=== PATIENT | female | born 1995 | race Caucasian/White ===

== ENCOUNTER 2017-12-28 15:20 | Outpatient (REF) | payer MEDICAID, SELFPAY ==
[2018-01-01 14:06] LABS: Chlamydia Result Negative; GC Result Negative; Specimen Description URINE
== END 2017-12-28 15:21 ==
LOC: LBN 15:20
PROVIDERS: PCP Nurse Practitioner Family; Visit Provider Nurse Practitioner Women's Health
DX: Z11.3 Encounter for screening for infections with a predominantly sexual mode of transmission (principal)
CPT/HCPCS: 87491; 87591

== ENCOUNTER 2018-04-29 00:20 | Outpatient (CLI) | payer MEDICAID, SELFPAY ==
[2018-04-29 11:24] LABS: Anion Gap 11.2 mmol/L (3-11); CO2 27.8 mmol/L (21.0-32.0); CREATININE 0.79 mg/dL (0.55-1.02); Calcium 10.6 mg/dL (8.5-10.1); Chloride 103 mmol/L (98-107); Glucose 88 mg/dL (70-100); Potassium 3.7 mmol/L (3.5-5.1); Sodium 142 mmol/L (136-145)
[2018-04-29 11:43] LABS: BUN 4 mg/dL (7-18)
== END 2018-04-29 00:40 ==
PROVIDERS: PCP Nurse Practitioner Family; Visit Provider Family Medicine
DX: K63.2 Fistula of intestine (principal)
CPT/HCPCS: 36415; 80048

== ENCOUNTER 2018-11-22 07:45 | Observation (INO) | payer MEDICAID, SELFPAY ==
[2018-11-22] VITALS (13 sets, daily range): BP systolic 94–134; BP diastolic 45–90; PULSE 70–113; RESP 12–18; TEMP 36.5–36.8; O2SAT 97–100
[2018-11-22 08:05] LABS: Bilirubin Negative (Negative); Blood Moderate (Negative); Clarity Clear (Clear); Glucose Negative (Negative); Ketones Negative (Negative); Leukocyte Esterase Moderate (Negative); Nitrite Negative (Negative); Urobilinogen 0.2 EU/dL (Up TO 0.2)
--- NOTE | 2018-11-22 08:06 | W.ED.GENAD ---
Discharge Plan Disposition Patient Disposition: [facility] INPATIENT Condition: Stable Discharge Details Chief Complaint: Abd Prob Clinical Impression: Ovarian mass, Right sided abdominal pain, Pyelonephritis Admit Date/Time: 11/22/18 10:56 Admit Provider: Pillo Crockett Attending Provider: Pillo Crockett Primary Care Provider: Piedad Langston ED Provider: Ramírez Bennett Discharge Data Discharge Date/Time-TO BE ENTERED AT DEPARTURE: 11/22/18 11:19 Medical Decision Making This is a pleasant 23-year-old female with no significant past medical history who presents today for evaluation of abdominal pain for the last day and a half. Is slightly worsened with food yesterday. No meals since last night. She has had some associated green diarrhea but denies any foreign travel or recent antibiotic use. Pain has no radiation to the chest or back. She denies any vaginal discharge or history of STDs. Exam demonstrates reproducible right mid and lower abdominal tenderness. Differential includes appendicitis, less likely gallbladder pathology. She could have mild atypical right-sided colitis secondary to her diarrhea as well. Due to the location of in nature of her symptoms we will get a CT scan for further evaluations, rehydrate, treat her pain, perform laboratory work-up and reassess. 8:[address] scan results have returned and show a notable left-sided suspected ovarian mass, no significant abnormality in the kidneys, a normal-appearing appendix, and notable stool in the right colon. I went and reassessed the patient and her pain is still notably and clearly on the right side of her abdomen. No significant left-sided tenderness. There is certainly a midline component, but this radiates to the right. Again on reassessment she continues to deny deny any dysuria or increased urinary frequency. She does note though that over the last 2 years that if she does not take care of herself does not drink a lot, she gets notable burning with urination. Differential is certainly altered with these unexpected findings, we will get an ultrasound to evaluate further for the ovarian component, as well as rule out torsion. Signs and symptoms appear inconsistent with torsion clinically though. Additionally we will give Rocephin for her urinary tract infection. Laboratory work-up does demonstrate no white count, no left shift, normal renal function, and a urinalysis concerning for pyelonephritis. 10:30 AM Ultrasound was performed, blood flow was noted in the ovary but it was slightly decreased. However on reassessment the patient's pain has nearly completely resolved and she is feeling much better. Because of the blood flow components, notable size of the mass, and atypical symptoms we did consult OB, and discussed the case with Dr. Crockett. He has come to bedside and personally evaluated the patient, he too feels that it is an atypical presentation as her tenderness is notably resolved. However because of the size of the mass, and the other historical components he would like to do an ex lap for further evaluation. At this time he would like the patient admitted for observation and surgical evaluation. I have extensively reviewed the treatment plan with the patient. I have addressed all patient concerns at this time. I have also discussed the plan with the admitting physician and they agree with the current assessment and plan and have agreed to assume responsibility for the patient. All parties demonstrate verbal understanding and agreement with our assessment and plan at this time. Images obtained through the lung bases are unremarkable. Liver, spleen and pancreas appear normal. Gallbladder and bile ducts are unremarkable. Adrenals and kidneys appear normal. Abdominal aorta is a normal diameter. No major vascular abnormality seen. No abdominal wall hernia seen. No abdominal or pelvic adenopathy seen. Appendix appears normal. No evidence of diverticulitis or bowel obstruction. There is a rounded fairly well circumscribed mass of the pelvis which measures about 9 x 7 cm in diameter on transaxial imaging. This has irregular soft tissue attenuation rim and fluid attenuation central portion with suggestion of numerous septations and areas of wall thickening. This appears to arise from the left ovary. The right ovary is unremarkable. The mass does abut the uterus and the possibility that the mass arises from the uterus is not entirely excluded but less likely. No pelvic adenopathy. No free pelvic fluid. No free air in the peritoneal cavity. CONCLUSION: Findings consistent with large left ovarian mass, most likely statistically to be benign in this age group. Other etiologies including infectious process or malignancy not excluded on the basis of this examination. Correlation with pelvic ultrasound and/or biopsies suggested. HPI General Date/Time Provider Initiated Documentation: 11/22/18 07:52. HPI Narrative: This is a 23-year-old female who has no significant past medical history who presents today for evaluation of abdominal pain. The patient states that yesterday she developed some mild green diarrhea with associated right mid abdominal pain. Since 11 PM last night the pain has become more severe and constant. She describes it is aching and stabbing in nature. She did eat some yesterday, and this did notably worsen her pain. She denies any vomiting but does admit to nausea. She denies any vaginal discharge, dysuria hematuria. She denies any radiation of the pain to her scapula or back. She states that she painfully felt every bump on the way into the ER this morning. She denies any other modifying factors, previous abdominal surgeries, or other complaints. 2 to 3 years ago she did have some chronic umbilical infections while on the keto diet however this resolved completely on its own. She denies any IV or illicit drug use, history of STDs, or other complaints. Related Data Home Medications Medication Instructions Recorded Confirmed etonogestrel [Nexplanon] 68 mg SQ ONCE #1 implant 09/29/16 11/22/18 Allergies Allergy/AdvReac Type Severity Reaction Status Date / Time Sulfa (Sulfonamide Allergy Intermediate sneezing, Unverified 11/22/18 07:52 Antibiotics) urticaria, throat swelling General Stated Complaint: Abd Prob GABRIELLA: 3 Review of Systems Review of Systems All systems reviewed & are unremarkable except as noted in HPI and below PFSH Surgical History Tonsillectomy Tympanostomy tube placement [place] teeth extraction Family History Mother No problems noted. Father Substance abuse Sister No problems noted. Grandmother Diabetes Social History Smoking/Tobacco Use Status: Never Alcohol Intake: never Drug use: Never Substance use type: does not use Do you feel safe at home: Yes Do you feel safe in your relationship?: Yes Exam Narrative Exam Narrative: 1.Const: Well-nourished, Well-developed, appearing stated age 2.Eyes: PERRL, no conjunctival injection, and symmetrical lids. 3.ENT: Atraumatic external nose and ears. Moist MM. Neck: Symmetric, trachea midline, No thyromegaly. 4.CVS: +S1/S2, No murmurs or gallops. Peripheral pulses 2+ and equal in all extremities. Brisk capillary refill in all extremities. 5.RESP: Unlabored respiratory effort. Clear to auscultation bilaterally. No wheezes rales or rhonchi 6.GI: Soft,Nondistended, No hepatosplenomegaly. No guarding or rebound. Mild to moderate pain in the right mid abdominal region. Negative Marshall sign, mild pain at McBurney's point. Some radiation from the right middle abdomen to the right lower abdomen on palpation. No pelvic tenderness. No suprapubic tenderness. Patient does have worsening pain with obturator and psoas testing on the right. Negative heel strike test bilaterally. 7.MSK: Normocephalic/Atraumatic, Extremities w/o deformity or ttp No cyanosis or clubbing, Normal movement of all extremities 8.Skin: Warm, Dry. No rashes or lesions. 9.Neuro: sheet tailer II-XII grossly intact. Sensation grossly intact, no focal neurologic deficits. 10.Psych: (AAO) x3. Appropriate mood and affect Course Vital Signs Temperature 36.8 C 11/22/18 07:50 Pulse 113 H 11/22/18 07:50 Respiratory Rate 18 11/22/18 07:50 Blood Pressure 134/90 11/22/18 07:50 Pulse Oximetry 100 11/22/18 07:50 Temperature 36.8 C 11/22/18 07:50 Temperature Source Temporal Artery Scan 11/22/18 07:50 Pulse 113 H 11/22/18 07:50 Respiratory Rate 18 11/22/18 07:50 Respiratory Effort Non-Labored 11/22/18 07:51 Blood Pressure 134/90 11/22/18 07:50 Pulse Oximetry 100 11/22/18 07:50 Oxygen Delivery Method Room Air 11/22/18 07:50 Oxygen Flow Rate 0 11/22/18 07:50 Pain Level 8 11/22/18 07:50
[2018-11-22] MEDS: Normal Saline 1,000 ML 1000 ML IV (08:13)
[2018-11-22] MEDS: Ondansetron 4 MG/2 ML VIAL IVP (08:13)
[2018-11-22] MEDS: Omnipaque 350 MG/ML 100 ML BTL IJ (08:24)
[2018-11-22 08:26] LABS: Abs Immature Grans 0.03 k/cumm (0.0-0.09); Absolute Basophil Count 0.02 k/cumm (0.0-0.2); Absolute Eosinophil Count 0.16 k/cumm (0.0-0.7); Absolute Lymphocyte Count 3.22 k/cumm (1.2-3.4); Absolute Monocyte Count 0.85 k/cumm (0.11-0.7); Absolute Neutrophil Count 5.36 k/cumm (1.2-6.7); Basophils % 0.2; Eosinophils % 1.7; HCT 42.7 % (36.0-46.0); HGB 14.5 g/dL (12.0-15.5); Immature Grans % 0.3; Lymphocytes % 33.4; Mean Corpuscular Hemoglobin 30.3 pg (27.0-33.0); Mean Corpuscular Volume 89.3 fL (80-95); Mean Platelet Volume 10.5 fL (8.0-11.0); Monocytes % 8.8; Neutrophils % 55.6; Platelet Count 390 x1000/uL (130-400); RBC 4.78 m/cumm (4.00-5.20); RBC Distribution Width 12.6 % (11.7-14.6); White Blood Cell Count 9.64 k/cumm (4.4-10.8)
[2018-11-22 08:27] LABS: Bacteria Moderate HPF (Negative); Casts Negative LPF (Negative); Crystals Negative HPF (Negative); Epithelial Cells Moderate HPF (Negative); Mucus Negative (Negative); WBC >50 HPF (0-5)
[2018-11-22 08:28] LABS: C & S Indicated? No/Sq. Contamination
[2018-11-22 08:41] LABS: ALT 14 U/L (12-78); AST 10 U/L (15-37); Albumin 4.1 g/dL (3.4-5.0); Alkaline Phosphatase 108 U/L (46-116); Anion Gap 13.5 mmol/L (3-11); BUN 6 mg/dL (7-18); Bilirubin, Total 0.2 mg/dL (0.2-1.0); CO2 24.5 mmol/L (21.0-32.0); Calcium 9.3 mg/dL (8.5-10.1); Chloride 104 mmol/L (98-107); Glucose 85 mg/dL (70-100); Lipase 128 U/L (73-393); Potassium 3.5 mmol/L (3.5-5.1); Sodium 142 mmol/L (136-145)
--- NOTE | 2018-11-22 08:43 | DI.US_ITS ---
SYMPTOM/DIAGNOSIS: OVARIAN/PELVIC MASS PELVIC ULTRASOUND: 11/22/18 Pelvic ultrasound was performed transabdominally and transvaginally. The low attenuation pelvic mass seen on CT consistent with left ovarian mass is seen to be predominantly cystic with peripheral solid nodular and septated components. Mildly increased vascular flow noted at the periphery of the lesion. Uterus is unremarkable in appearance with a 5 mm homogeneous endometrial stripe. No free fluid seen in the cul de sac. Right ovary was only visualized transabdominally but appears normal. CONCLUSION: Findings consistent with left ovarian mass as described above, in this age group this is statistically most likely to represent a benign process. No direct evidence of torsion. Biopsy recommended.
[2018-11-22] MEDS: Ketorolac 30 MG/ML VIAL IVP ×2 (08:57→16:14)
[2018-11-22] MEDS: cefTRIAXone 2 GM/50 ML BAG IVPB (09:33)
--- NOTE | 2018-11-22 11:31 | HPE_ITS ---
Date of service: 11/22/18 Time of Service: 11:28 Assessment and Plan (1) Pelvic mass: Current visit: Yes Status: Acute (2) Ovarian torsion: Current visit: Yes Status: Acute Based on the patient's constellation of symptoms and ultrasound findings there is certainly concern for ovarian torsion. This is a surgical emergency. I reviewed the plan for surgery. My recommendation is to proceed with laparoscopic ovarian cystectomy and possible oophorectomy. Risks of surgery were discussed with the patient. All questions were answered to patient's satisfaction and consent for surgery was obtained. History of Present Illness Chief Complaint: Abdominal pain Narrative: 23-year-old G0 presents to the emergency department with 24 hours of right and midline abdominal pelvic pain. She denies any fevers or chills. She is reports that the pain began suddenly. The patient was seen in the emergency department and she did have a pelvic ultrasound and a CT of the abdomen pelvis showing a large left-sided pelvic mass. Pelvic ultrasound did show some minimal flow to the ovary and there is certainly concern for ovarian torsion. The patient is generally healthy with no chronic medical problems. [facility] Surgical History Tonsillectomy Tympanostomy tube placement [place] teeth extraction Family History Mother No problems noted. Father Substance abuse Sister No problems noted. Grandmother Diabetes Social History Smoking/Tobacco Use Status: Never Alcohol Intake: never Drug use: Never Substance use type: does not use Do you feel safe at home: Yes Do you feel safe in your relationship?: Yes Meds Home Medications Medication Instructions Recorded Confirmed Type etonogestrel [Nexplanon] 68 mg SQ ONCE #1 implant 09/29/16 11/22/18 History Allergies Allergy/AdvReac Type Severity Reaction Status Date / Time Sulfa (Sulfonamide Allergy Intermediate sneezing, Unverified 11/22/18 07:52 Antibiotics) urticaria, throat swelling Exam Chest Chest: normal inspection of the chest Resp Auscultation: clear to auscultation bilaterally Cardio Rate: regular rate Rhythm: regular rhythm GI Other: Soft. Mild tenderness to palpation in the low midline and right-sided abdomen. No rebound or guarding or rigidity. Results Labs : 11/22/18 08:04 11/22/18 08:04 Laboratory Results - last 24 hr 11/22/18 11/22/18 11/22/18 07:55 08:04 08:04 WBC 9.64 RBC 4.78 Hgb 14.5 Hct 42.7 MCV 89.3 MCH 30.3 MCHC 34.0 RDW 12.6 Plt Count 390 MPV 10.5 Immature Gran % 0.3 Neutrophils % 55.6 Lymphocytes % 33.4 Monocytes % 8.8 Eosinophils % 1.7 Basophils % 0.2 Absolute Neutrophils 5.36 Absolute Lymphocytes 3.22 Absolute Monocytes 0.85 H Absolute Eosinophils 0.16 Absolute Basophils 0.02 Sodium 142 Potassium 3.5 Chloride 104 Carbon Dioxide 24.5 Anion Gap 13.5 H BUN 6 L Creatinine 0.70 Estimated GFR/1.73 m2 >= 60.00 Glucose 85 Calcium 9.3 Total Bilirubin 0.2 AST 10 L ALT 14 Alkaline Phosphatase 108 Total Protein 9.0 H Albumin 4.1 Lipase 128 Urine Color Yellow Urine Clarity Clear Urine pH 7.0 Ur Specific Parker 1.010 Urine Protein Negative Urine Ketones Negative Urine Blood Moderate H Urine Nitrite Negative Urine Bilirubin Negative Urine Urobilinogen 0.2 Ur Leukocyte Esterase Moderate H Urine RBC 3-5 H Urine WBC >50 Ur Epithelial Cells Moderate Urine Crystals Negative Urine Bacteria Moderate Urine Casts Negative Urine Mucus Negative Ur Culture Indicated? No/sq. contamination Urine Glucose Negative Last Vital Signs Temp 98.2 F 11/22/18 07:50 Pulse 113 H 11/22/18 07:50 Resp 18 11/22/18 07:50 BP 134/90 11/22/18 07:50 Pulse Ox 100 11/22/18 07:50
[2018-11-22] MEDS: Lactated Ringers 1,000 ML 30 ML IV (11:40)
--- NOTE | 2018-11-22 12:28 | PAPNONF_PTH ---
PATIENT: Adam Arauz LOC: U#:[id number] AGE/SX: 23/F ROOM: RE11/22/[address]: Pillo Crockett MD : 1995 BED: A DIS: 11/23/2018 SPEC #: [id number] RECD: 11/22/18 17:32 STATUS: MAE REQ #: [id number] EMANUEL: 11/22/18 12:[address]: Pillo Crockett DEPT: [facility] Cytology RECD BY: Aniya Barnes ENTERED: 11/22/18 17:33 SP TYPE: HAKEEM TINOCO DR: Piedad Langston, LUIGI Tissues: 1 - BODY FLUID CYTO(NOT S/U/N/EM)[facility] Procedures: BODY FLUID CYTO(NOT SPU/UR/NIP/ENDOM)[facility] Comments: [id number] (TV = 10 ml's) (10 ml'S WASHINGS & 10 ml'S CYTOLYT ADDED)
[2018-11-22] MEDS: Bupivacaine 0.25% Pres-Free 30 ML VIAL (13:00)
--- NOTE | 2018-11-22 14:00 | OVAR_PTH ---
PATIENT: Adam Arauz LOC: MS Velasquez#:[id number] AGE/SX: 23/F ROOM: RE11/22/[address]: Pillo Crockett MD : 1995 BED: A DIS: 11/23/2018 SPEC #: [id number] RECD: 11/22/18 17:27 STATUS: MAE REIsac #: [id number] EMANUEL: 11/22/18 14:[address]: Pillo Crockett DEPT: Surgical Specimen RECD BY: Aniya Barnes ENTERED: 11/22/18 17:28 SP TYPE: ROMAN TINOCO DR: Piedad Langston APRN Tissues: 1 - OVARY BIOPSY Procedures: GROSS AND MICRO LEVEL 4 Comments: [id number]
[2018-11-22] MEDS: Normal Saline Flush 10 ML SYR IVP ×2 (16:15→21:05)
[2018-11-22] MEDS: Lactated Ringers 1,000 ML 125 ML IV ×2 (16:16→23:43)
--- NOTE | 2018-11-22 16:32 | W.PM.OP ---
Date of service: 11/22/18 Time of Service: 16:32 Operative Note DATE OF PROCEDURE: 11/22/18 PRE-OP DIAGNOSIS: Ovarian mass with possible torsion POST-OP DIAGNOSIS: same PROCEDURE: Laparoscopic ovarian cystectomy SURGEON: Pillo Crockett ASSISTING SURGEON: Tracy Avelar ANESTHESIA: GETA ESTIMATED BLOOD LOSS: 150 PATHOLOGY: other (1. Ovarian cyst wall. 2. Pelvic washings) COMPLICATIONS: None Patient was transported to: PACU Patient's condition: stable Findings: 1. 10 cm ovarian mass with torsion Procedure Description: The patient was taken to the operating room and after adequate level of general anesthesia was obtained the patient was placed in lithotomy position. The patient was prepped and draped in usual sterile manner. A weighted speculum was placed in the vagina with good visualization of the cervix. A [employer] uterine manipulator was placed as well as a Toscano catheter. The patient was repositioned. The surgeon was regloved. Attention was then turned to the patient's abdomen. The skin and subcutaneous tissues at the umbilicus were infiltrated with 0.25% Marcaine solution. A small infraumbilical skin incision was then made with a #15 blade scalpel. Sharp dissection was carried down to the underlying layer fascia which was grasped and elevated with 2 Nic clamps. The fascia was incised with the scalpel and the peritoneum was entered sharply with hemostats. A 10 mm balloon port was inserted. Two 5 mm ports were placed under direct visualization in the right and left lower quadrant. A large left ovarian mass was noted with torsion. The right tube and ovary were normal in appearance. The uterus is normal in appearance. Because of the size and complex appearance of the ovarian mass, pelvic washings were obtained. The decision was made to proceed with ovarian cystectomy. A third 5mm port was placed in the right upper quadrant also under direct visualization to assist with the dissection. The ovarian capsule was scored with the needle tip cautery. Dissection was carried across the capsule with endoscopic scissors and LigaSure device. The ovarian cyst was dissected from the normal ovarian tissue with blunt and sharp dissection. The cyst did rupture during dissection and the cyst wall was able to be completely removed. This was removed from the abdomen with the use of an Endo Catch bag. Because of the large area of dissection along the ovary the decision was made to reapproximate the defect. All bleeders were cauterized with the LigaSure device and with the needle tip cautery. With use of a laparoscopic needle truck driver rubbish collector and V lock suture the defect on the ovary was closed. 20 mL's of Surgi-Marck was instilled into the ovarian defect and around the ovary in order to assure hemostasis. A thorough irrigation of the abdominal cavity was performed and hemostasis was noted. All ports were removed under direct visualization. The 5 mm ports were reapproximated with interrupted sutures of 4-0 Monocryl. The fascia at the umbilicus was closed with 0 Vicryl suture. The skin incision at the umbilicus was also closed with 4 Monocryl and Dermabond was applied. The procedure was concluded at this point. Sponge lap and needle counts were correct at the conclusion of the procedure and the patient was transferred to PACU in stable condition.
[2018-11-22] MEDS: oxyCODONE 5 mg/Acetaminophen 325 mg TAB PO (18:08)
[2018-11-22] MEDS: Ketorolac 30 MG/ML VIAL (21:04)
[2018-11-23 02:34] VITALS: BP 118/71; PULSE 78; RESP 18; TEMP 36.6; O2SAT 98
--- NOTE | 2018-11-23 04:36 | NUR.NOTE ---
Patient voiced complaint of pain earlier in the shift was medicated with prn analgesics same was effective, got up periodically and voids without any problem in the toilet. IV fluids still being maintained. Patient state she will go home this morning
== END 2018-11-23 06:51 | disposition home or self-care (01) ==
LOC: ER 11:27 → SUR 11:46 → ER 13:42 → MS 16:57
PROVIDERS: Admitting Provider Obstetrics & Gynecology; Emergency Provider Student in an Organized Health Care Education/Training Program; PCP Nurse Practitioner Family; Visit Provider Obstetrics & Gynecology
PROC: 0UB14ZZ Excision of Left Ovary, Percutaneous Endoscopic Approach (ICD-10-PCS; CPT 49320; principal; 2018-11-22 12:00)
PROC: 0UB14ZZ Excision of Left Ovary, Percutaneous Endoscopic Approach (ICD-10-PCS; CPT 58662; 2018-11-22 12:00)
DX: D27.1 Benign neoplasm of left ovary (principal); N83.512 Torsion of left ovary and ovarian pedicle
CPT/HCPCS: 58662; 36415; 80053; 81025; 83690; 88305; 96361; 96365; 96375; 99223; 99285; 74177; 76830; 76856; 81003; 81015; 85025; 88104; 99284; J1100; J1885; J2250; J2405; J3490

== ENCOUNTER 2018-11-30 09:30 | Outpatient (CLI) | payer MEDICAID, SELFPAY ==
[2018-11-30 10:04] LABS: Abs Immature Grans 0.03 k/cumm (0.0-0.09); Absolute Basophil Count 0.03 k/cumm (0.0-0.2); Absolute Eosinophil Count 0.38 k/cumm (0.0-0.7); Absolute Lymphocyte Count 1.89 k/cumm (1.2-3.4); Absolute Monocyte Count 0.78 k/cumm (0.11-0.7); Absolute Neutrophil Count 6.37 k/cumm (1.2-6.7); Basophils % 0.3; HCT 38.9 % (36.0-46.0); HGB 13.2 g/dL (12.0-15.5); Immature Grans % 0.3; Lymphocytes % 19.9; Mean Corp. HGB Concentration 33.9 g/dL (32.0-36.0); Mean Corpuscular Hemoglobin 30.8 pg (27.0-33.0); Mean Corpuscular Volume 90.9 fL (80-95); Mean Platelet Volume 10.3 fL (8.0-11.0); Monocytes % 8.2; Neutrophils % 67.3; Platelet Count 394 x1000/uL (130-400); RBC 4.28 m/cumm (4.00-5.20); RBC Distribution Width 12.2 % (11.7-14.6); White Blood Cell Count 9.48 k/cumm (4.4-10.8)
== END 2018-11-30 09:50 ==
PROVIDERS: PCP Nurse Practitioner Family; Visit Provider Obstetrics & Gynecology
DX: R50.82 Postprocedural fever (principal)
CPT/HCPCS: 36415; 85025; 87086

== ENCOUNTER 2019-03-09 10:15 | Emergency (ER) | payer MEDICAID, SELFPAY ==
[2019-03-09 10:19] VITALS: BP 140/91; PULSE 115; RESP 18; TEMP 37; O2SAT 97
--- NOTE | 2019-03-09 10:23 | ED.GENADUL_ITS ---
Discharge Plan Disposition Patient Disposition: HOME Condition: Stable Discharge Details Chief Complaint: Nk/Back Pain Clinical Impression: Back pain, Lumbar strain Primary Care Provider: Piedad Langston ED Provider: Jessika Watson Home Meds and New Rx's Prescriptions: New methocarbamol [Robaxin-750] 750 mg tablet 750 mg PO QID PRN (Reason: muscle spasm) Qty: 10 RF: 0 Continued ibuprofen 400 mg tablet 400 mg PO QID PRNRF: 0 Nexplanon 68 MG implant 68 mg SQ ONCE Qty: 1 RF: 0 Discharge Instructions Instructions: Low Back Strain (ED) Additional Instructions: Alternate ice and heat to the affected area several times daily for 20 minutes at a time. Alternate Tylenol and Motrin as needed and directed for pain. Follow-up with the primary care doctor next week for reevaluation. Return to the emergency department with any worsening or new concerning symptoms. Discharge Data Discharge Physician: Jessika Watson Medical Decision Making 1030 -- 23-year-old female presents with sudden onset of midline lower back pain after bending forward while pulling the strings of a trash bag close tight just prior to arrival. She was able to ambulate back to the room but appears uncomfortable, slightly hunched forward. Her lower back is normal to inspection without evidence of trauma, rash or infection and without any tenderness to palpation of midline or paraspinal region. She has no buttock tenderness, no focal deficits and she is neurovascularly intact. She clearly has pain with any range of motion of her lower back. As she has no history of the fall or direct blunt injury and no midline tenderness to palpation, do not see an indication for x-ray. As she has no cauda equina symptoms and is neurovascular intact, do not see an indication for CT imaging or for referral for stat MRI at this time. Will give a dose of Toradol IM, Decadron p.o., Valium p.o. and place Lidoderm patch and obtain urine test and reassess. 1130 -- pt denies any relief of pain - she is now laying in the stretcher which is an improvement from her standing since arrival but she is unable to get up without pain. Will give a dose of oxycodone and reassess. 1150 --patient declines oxycodone or hydrocodone here to nurse stating that she had a previous adverse reaction of nausea and does not want this at this time. Will give patient some time for her original medications to have more effect and reassess. 1230 --patient states she feels somewhat better and feels good to go home. She was able to stand up from stretcher and appeared more comfortable. She is declining any narcotic pain medication for home. We will send home with a prescription for Robaxin. She is advised to purchase [id number] Lidoderm patches to help with pain, alternate Tylenol and Motrin and ice and heat. She is advised to follow-up with her primary care doctor for reevaluation and to return here if worse. HPI General Mode of arrival: ambulatory . Date/Time Provider Initiated Documentation: 03/09/19 10:19 . Limitations to Documentation: no limitations . Information obtained by: patient . HPI Narrative: Patient is a 23-year-old female presents with sudden onset of midline lower back pain that started while she was tying up a trash bag. Patient states she was slightly bending forward when she pulled the strings of the trash bag tight and she felt a pop and sudden onset of pain in her midline lower back. She denies any radiation of pain to her legs, leg weakness or numbness, saddle anesthesia, bowel or bladder incontinence, fever, abdominal pain or urinary symptoms. She states she has not taken anything for pain. She states the pain is worse with any movements, specifically bending forward or twisting her upper body. Related Data Home Medications Medication Instructions Recorded Confirmed Nexplanon 68 mg SQ ONCE #1 implant 09/29/16 03/09/19 ibuprofen 400 mg tablet 400 mg PO QID PRN 11/30/18 03/09/19 methocarbamol [Robaxin-750] 750 mg PO QID PRN #10 tab 03/09/19 Previous Rx's Medication Instructions Recorded methocarbamol [Robaxin-750] 750 mg PO QID PRN #10 tab 03/09/19 Allergies Allergy/AdvReac Type Severity Reaction Status Date / Time Sulfa (Sulfonamide Allergy Intermediate sneezing, Verified 03/09/19 10:21 Antibiotics) urticaria, throat swelling General Stated Complaint: Nk/Back Pain GABRIELLA: 4 Review of Systems Review of Systems ROS Unobtainable: All systems reviewed & are unremarkable except as noted in HPI and below Constitutional Constitutional: Reports as per HPI, Denies chills and Denies fever(s) Eyes Eyes: Denies blurry vision ENT Ears, Nose, Mouth, and Throat: Denies dizziness, Denies sore throat and Denies throat swelling Cardiovascular Cardiovascular: Denies chest pain and Denies dyspnea Respiratory Respiratory: Denies cough and Denies dyspnea Gastrointestinal Gastrointestinal: Denies abdominal pain, Denies diarrhea and Denies vomiting Genitourinary Genitourinary: Denies hematuria and Denies dysuria Musculoskeletal Musculoskeletal: Reports back pain and Denies numbness Integumentary/Breasts Skin/Breast: Denies lesions and Denies rash Neurologic Neurologic: Denies dizziness, Denies focal weakness and Denies numbness Allergic/Immunologic Allergic/Immunologic: Denies throat swelling [facility] Medical History Migraines (Inactive 06/30/16) Ovarian torsion (Inactive) Surgical History H/O ovarian cystectomy (Acute) Tonsillectomy Tympanostomy tube placement [place] teeth extraction Family History Mother No problems noted. Father Substance abuse Heavy MJ Sister No problems noted. Grandmother Diabetes Social History Smoking/Tobacco Use Status: Never Alcohol Intake: never Drug use: Never Substance use type: does not use Do you feel safe at home: Yes Do you feel safe in your relationship?: Yes Exam Const General: cooperative, healthy appearing and no acute distress [facility] Head: normal to inspection Face and sinus: normal facial exam Eyes General: appearance normal, both eyes and all related structures Pupils: PERRL EOM: EOM intact bilaterally Neck Neck: normal visual inspection and No submandibular swelling Lymphatic: no lymphadenopathy noted Chest Chest: normal inspection of the chest and no tenderness Resp Effort & Inspection: normal respiratory effort and able to speak in complete sentences Auscultation: clear to auscultation bilaterally Cardio Rate: regular rate Rhythm: regular rhythm GI Inspection: normal to inspection Palpation: soft, not firm, not rigid and nontender Auscultation: normal bowel sounds Back/Spine/Pelvis Thoracic/Lumbar Spine: thoracic and lumbar spine normal to inspection, No paraspinal tenderness, No thoracic spinal tenderness and No lumbar spinal tenderness Pelvis: no pain with anterior-posterior compression, no buttock ecchymosis, no buttock tenderness and no buttock swelling Skin General skin exam: no rashes or lesions noted Neuro General: alert, awake and oriented x3 Cognition: normal cognition Speech: speech normal Motor: muscle tone normal throughout Sensory Exam: no sensory deficits noted DTR's: Rt Patellar: 1+, Lt Patellar: 1+, Rt Ankle: 1+ and Lt Ankle: 1+ Plantar Reflexes: Equivocal: bilateral (negative babinski b/l ) Extrem General: normal to inspection, full ROM, normal capillary refill, no calf tenderness bilaterally and no edema Other: B/L DP/PT pulses intact. Psych Appearance: grossly normal Mental Status: mental status grossly normal Speech and Movement: speech and movement normal Affect: normal affect Course Vital Signs Vital signs: Vital Signs Temperature 98.6 F 03/09/19 10:19 Pulse 115 H 03/09/19 10:19 Respiratory Rate 18 03/09/19 10:19 Blood Pressure 140/91 H 03/09/19 10:19 Pulse Oximetry 97 03/09/19 10:19 Temperature 98.6 F 03/09/19 10:19 Temperature Source Tympanic 03/09/19 10:19 Pulse 115 H 03/09/19 10:19 Respiratory Rate 18 03/09/19 10:19 Blood Pressure 140/91 H 03/09/19 10:19 Blood Pressure Position Standing 03/09/19 10:19 Pulse Oximetry 97 03/09/19 10:19 Oxygen Delivery Method Room Air 03/09/19 10:19 Oxygen Flow Rate 0 03/09/19 10:19 Pain Level 8 03/09/19 10:19
[2019-03-09] MEDS: Lidocaine 5% Patch 1 PATCH TP (11:02)
[2019-03-09] MEDS: diazePAM 5 MG TAB PO (11:02)
[2019-03-09] MEDS: Ketorolac 60 MG/2 ML VIAL IM (11:03)
[2019-03-09] MEDS: Dexamethasone 10 MG/ML VIAL PO (11:04)
[2019-03-09 12:40] VITALS: BP 140/91; PULSE 115; RESP 18; TEMP 37; O2SAT 97
== END 2019-03-09 12:47 | disposition home or self-care (01) ==
PROVIDERS: Emergency Provider Physician Assistant; PCP Nurse Practitioner Family
DX: S39.012A Strain of muscle, fascia and tendon of lower back, initial encounter (principal); X50.1XXA Overexertion from prolonged static or awkward postures, initial encounter
CPT/HCPCS: 81025; 96372; 99284; J1100; J1885

== ENCOUNTER 2019-06-17 15:47 | Outpatient (REF) | payer MEDICAID, SELFPAY ==
--- NOTE | 2019-06-17 15:15 | PAPFT_PTH ---
PATIENT: Adam Arauz LOC: [place] U#:[id number] AGE/SX: 24/F ROOM: RE06/17/[address]: Amira Aldana NP : 1995 BED: DIS: 06/17/2019 SPEC #: [id number] RECD: 06/17/19 17:48 STATUS: MAE SMITH #: [id number] EMANUEL: 06/17/19 15:[address]: Amira Aldana NP DEPT: [facility] Cytology RECD BY: Aniya Barnes ENTERED: 06/17/19 17:48 SP TYPE: PAPFT ALEJANDRINA DR: Piedad Langston, ICE GRINDER Tissues: 1 - CX/ENDOCX FOR PAP SMEARS Procedures: PAP THIN PREP/UVM Screening Comments: [id number]
== END 2019-06-17 16:07 ==
LOC: LBN 15:47
PROVIDERS: PCP Nurse Practitioner Family; Visit Provider Nurse Practitioner Women's Health
DX: Z12.4 Encounter for screening for malignant neoplasm of cervix (principal)
CPT/HCPCS: 88142

== ENCOUNTER 2019-06-24 01:27 | Outpatient (CLI) | payer MEDICAID, SELFPAY ==
--- NOTE | 2019-06-24 13:20 | DI.US_ITS ---
EXAM: US PELVIS AND TRANSVAGINAL CLINICAL HISTORY: LEFT SIDED PELVIC PAIN, HX OF OVARIAN TORSION, TECHNIQUE: Ultrasound performed using standard protocol. COMPARISON: US pelvis from 11/22/2018 FINDINGS: The uterus measures 6.3 x 4.2 x 5.9 cm. The endometrium measures 2 millimeters in thickness. There is a 2.4 centimeter dominant follicle of the right ovary. There is no evidence of torsion. The left ovary was unable to be visualized either transabdominally or transvaginally. No free fluid or hydro nephrosis is seen. The bladder is unremarkable. IMPRESSION: Left ovary is not visualized. Dominant follicle was noted on the right ovary. There is no evidence of torsion.
== END 2019-06-24 01:47 ==
PROVIDERS: PCP Nurse Practitioner Family; Visit Provider Nurse Practitioner Women's Health
DX: R10.2 Pelvic and perineal pain (principal); R10.32 Left lower quadrant pain; N83.01 Follicular cyst of right ovary
CPT/HCPCS: 76830; 76856

== ENCOUNTER 2019-12-10 04:54 | Outpatient (CLI) | payer MEDICAID, SELFPAY ==
[2019-12-10 13:05] LABS: TSH (W/Ref FT4) 2.52 uIU/mL (0.36-3.74)
== END 2019-12-10 05:14 ==
PROVIDERS: PCP Nurse Practitioner Family; Visit Provider Nurse Practitioner Family
DX: F33.2 Major depressive disorder, recurrent severe without psychotic features (principal)
CPT/HCPCS: 36415; 84443

== ENCOUNTER 2020-05-11 03:31 | Outpatient (CLI) | payer MEDICAID, SELFPAY ==
[2020-05-11 12:42] LABS: Abs Immature Grans 0.13 10^3/uL (0.0-0.06); Absolute Basophil Count 0.05 10^3/uL (0.0-0.2); Absolute Eosinophil Count 0.21 10^3/uL (0.0-0.7); Absolute Lymphocyte Count 4.41 10^3/uL (1.2-3.4); Absolute Monocyte Count 0.71 10^3/uL (0.1-0.8); Basophils % 0.4; Eosinophils % 1.8; HCT 43.4 % (36.0-46.0); HGB 14.5 g/dL (11.2-15.7); Immature Grans % 1.1; MCH 30.4 pg (27.0-33.0); MCHC 33.4 % (32.0-36.0); MPV 10.2 fL (8.0-11.0); Monocytes % 6.1; Neutrophils % 52.6; Nucleated RBC 0 %; Platelet Count 377 10^3/uL (130-400); RBC 4.77 10^6/uL (3.93-5.22); RDW 12.5 % (11.7-14.6); RDW-SD 41.6 fL
[2020-05-11 13:35] LABS: ALT 23 U/L (14-59); AST 13 U/L (15-37); Albumin 3.7 g/dL (3.4-5.0); Alkaline Phosphatase 127 U/L (46-116); Anion Gap 8.3 mmol/L (3-11); BUN 9 mg/dL (7-18); Bilirubin, Total 0.4 mg/dL (0.2-1.0); CO2 26.7 mmol/L (21.0-32.0); CREATININE 0.83 mg/dL (0.55-1.02); Chloride 102 mmol/L (98-107); Glucose 133 mg/dL (74-106); Potassium 3.6 mmol/L (3.5-5.1); Sodium 137 mmol/L (136-145); Total Protein 7.9 g/dL (6.4-8.2)
== END 2020-05-11 03:51 ==
PROVIDERS: PCP Nurse Practitioner Family; Visit Provider Nurse Practitioner Family
DX: R53.83 Other fatigue (principal); G47.19 Other hypersomnia
CPT/HCPCS: 36415; 80053; 85025

== ENCOUNTER 2020-09-02 01:47 | Outpatient (CLI) | payer OTHER, MEDICAID, SELFPAY ==
--- NOTE | 2020-09-02 | DI.RAD_ITS ---
EXAM: XR LUMBAR SPINE AP, LAT CLINICAL HISTORY: DISABILITIY DETERMINATION, MID,LOW BACK PAIN, BACK INJURY,. TECHNIQUE: 2D digital imaging was performed. COMPARISON: CT CT ABDOMEN PELVIS W from 11/22/[address] ABDOMEN PELVIS W from 11/22/2018 FINDINGS: BONES: No fracture or destructive lesion. Vertebral bodies are unremarkable. No facet hypertrophy guillermo ntified. DISKS: Slight narrowing L5-S1 disc space. The remaining intervertebral disc spaces are maintained. ALIGNMENT: Lumbar spinal alignment is within normal limits. SOFT TISSUE: Normal. IMPRESSION: Mild L5-S1 disc space narrowing. DATA REPOSITORY: RADIATION DOSE DELIVERED:
--- NOTE | 2020-09-02 | DI.RAD_ITS ---
EXAM: XR THORACIC SPINE COMPLETE CLINICAL HISTORY: DISABILITY DETERMINATION,BACK INJURY,HERNIATED DISC INFLAM,MID,LOW BACK JOSE. TECHNIQUE: 2D digital imaging was performed. COMPARISON: No exams were available for comparison FINDINGS: BONES: There is no fracture or destructive lesion. The vertebral bodies and posterior elements are un remarkable. DISKS:Alignment is within normal limits. Interverebral disc spaces are maintained. Minimal anterior e ndplate osteophytes in the mid thoracic spine. SOFT TISSUE: Visualized lungs are clear. IMPRESSION: Unremarkable radiographs of the thoracic spine. DATA REPOSITORY: RADIATION DOSE DELIVERED:
== END 2020-09-02 02:07 ==
PROVIDERS: PCP Nurse Practitioner Family; Visit Provider Pediatrics Pediatric Rheumatology
DX: M54.6 Pain in thoracic spine (principal); M54.5 Low back pain; M51.37 Other intervertebral disc degeneration, lumbosacral region; Z02.71 Encounter for disability determination
CPT/HCPCS: 72072; 72100

== ENCOUNTER 2020-09-03 01:53 | Outpatient (CLI) | payer MEDICAID, SELFPAY ==
[2020-09-04 16:18] LABS: COVID-19 RT-PCR UVMMC Result Negative (Negative)
== END 2020-09-03 01:54 | disposition home or self-care (01) ==
LOC: LBO 01:54
PROVIDERS: PCP Nurse Practitioner Family; Visit Provider Nurse Practitioner
DX: Z20.822 Contact with and (suspected) exposure to COVID-19 (principal); Z01.818 Encounter for other preprocedural examination
CPT/HCPCS: U0003

== ENCOUNTER 2022-06-20 12:58 | Outpatient (REF) | payer MEDICAID, SELFPAY ==
--- NOTE | 2022-06-20 11:40 | PAPFT_PTH ---
PATIENT: Adam Arauz LOC: [place] U#:[id number] AGE/SX: 27/F ROOM: RE06/20/[address]: Sarah Mccullough DO : 1995 BED: DIS: 06/20/2022 SPEC #: [id number] RECD: 06/20/22 13:13 STATUS: MAE REQ #: [id number] EMANUEL: 06/20/22 11:[address]: Sarah Mccullough DEPT: [facility] Cytology RECD BY: Aniya Barnes ENTERED: 06/20/22 13:14 SP TYPE: PAPFT OT DR: Tamiko Meyer APRN Tissues: 1 - CX/ENDOCX FOR PAP SMEARS Procedures: PAP THIN PREP/UVM Screening HPV DNA PROBE Comments: [id number] (CHLAMYDIA/GC)
[2022-06-21 16:58] LABS: Chlamydia Result Negative (Negative); GC Result Negative (Negative)
== END 2022-06-20 12:59 | disposition home or self-care (01) ==
LOC: LBN 12:58
PROVIDERS: PCP Nurse Practitioner; Visit Provider Obstetrics & Gynecology
DX: R87.610 Atypical squamous cells of undetermined significance on cytologic smear of cervix (ASC-US) (principal)
CPT/HCPCS: 87491; 87591; 88142; 87624

== ENCOUNTER 2022-08-15 02:34 | Outpatient (CLI) | payer MEDICAID, SELFPAY ==
--- NOTE | 2022-08-15 06:45 | DI.US_ITS ---
Exam(s) US PELVIS TRANSVAGINAL EXAM: US PELVIS TRANSVAGINAL CLINICAL HISTORY: anatomy,dysfunctional uterine bleeding,n93.8 TECHNIQUE: Ultrasound of the pelvis was performed both transabdominal and transvaginal. COMPARISON: CT CT ABDOMEN PELVIS W from 11/22/2018 US US pelvis from 11/22/2018 US US PELVIS TRANSVAGINAL from 06/24/2019 FINDINGS: UTERUS: Nongravid and anteverted Measures 7 cm length x 0.6 cm AP x 6 cm wide. There are no uterine fibroids. Endometrial thickness measures 12 mm. There is no fluid in the endometrial canal. CERVIX: There are no obvious nabothian cysts. RIGHT OVARY: Measures 5 x 2 x 3 cm No significant cysts nor masses evident in the right ovary. LEFT OVARY: Measures 4.6x1.3 x 2.2 cm No significant cysts nor masses evident in the left ovary. Present large pelvic seen October 2018 is not seen on this ultrasound exam. This cystic mass was also e vident on ultrasound examination of but October 2018. CUL-DE-SAC: No free fluid evident. IMPRESSION: 1. Normal appearing uterus and age-appropriate endometrium. 2. No abnormal ovarian findings. 3. Previously present large cystic pelvic mass seen on CT scan of October 2018 and pelvic ultrasound of October 2018 are not seen on the present study. DATA REPOSITORY:
== END 2022-08-15 02:54 ==
LOC: DI 02:37
PROVIDERS: PCP Nurse Practitioner; Visit Provider Obstetrics & Gynecology
DX: N93.8 Other specified abnormal uterine and vaginal bleeding (principal)
CPT/HCPCS: 76830; 76856

== ENCOUNTER 2022-08-15 03:57 | Outpatient (CLI) | payer MEDICAID, SELFPAY ==
[2022-08-15 10:38] LABS: ALT 29 U/L (14-59); AST 16 U/L (15-37); Alkaline Phosphatase 85 U/L (46-116); Anion Gap 8.5 mmol/L (3-11); BUN 10 mg/dL (7-18); Bilirubin, Total 0.4 mg/dL (0.2-1.0); CO2 28.5 mmol/L (21.0-32.0); CREATININE 0.9 mg/dL (0.55-1.02); Calcium 9.4 mg/dL (8.5-10.1); Chloride 102 mmol/L (98-107); Estimated GFR 90.98 (mL/min/1.73m2); Glucose 81 mg/dL (74-106); Potassium 3.8 mmol/L (3.5-5.1); Sodium 139 mmol/L (136-145); TSH (W/Ref FT4) 2.18 uIU/mL (0.36-3.74); Total Protein 8.5 g/dL (6.4-8.2)
[2022-08-15 19:19] LABS: FSH 4.8 mIU/mL (See Note); LH 9.2 mIU/mL (See Note)
== END 2022-08-15 03:58 | disposition home or self-care (01) ==
LOC: LBO 03:57
PROVIDERS: PCP Nurse Practitioner; Visit Provider Obstetrics & Gynecology
DX: L65.9 Nonscarring hair loss, unspecified; N93.8 Other specified abnormal uterine and vaginal bleeding; N92.5 Other specified irregular menstruation
CPT/HCPCS: 36415; 80053; 83001; 83002; 84443

== ENCOUNTER 2023-09-04 11:59 | Outpatient (REF) | payer MEDICAID, SELFPAY ==
--- NOTE | 2023-09-04 11:30 | PAPFT_PTH ---
PATIENT: Adam Arauz LOC: [place] U#:[id number] AGE/SX: 28/F ROOM: RE09/04/[address]: Sarah Mccullough DO : 1995 BED: DIS: 09/04/2023 SPEC #: [id number] RECD: 09/05/23 13:00 STATUS: FANYWan REIsac #: [id number] EMANUEL: 09/04/23 11:[address]: Sarah Mccullough DEPT: [facility] Cytology RECD BY: Aniya Barnes ENTERED: 09/05/23 13:00 SP TYPE: PAPFT OTHR DR: Tamiko Meyer APRN Tissues: 1 - CX/ENDOCX FOR PAP SMEARS Procedures: PAP THIN PREP/UVM Screening HPV DNA PROBE Comments: [id number] (CHLAMYDIA/GC)
[2023-09-06 14:25] LABS: Chlamydia Result Negative (Negative); GC Result Negative (Negative)
== END 2023-09-04 12:00 | disposition home or self-care (01) ==
LOC: LBN 11:59
PROVIDERS: PCP Nurse Practitioner; Visit Provider Obstetrics & Gynecology
DX: Z12.4 Encounter for screening for malignant neoplasm of cervix (principal); Z11.51 Encounter for screening for human papillomavirus (HPV)
CPT/HCPCS: 87491; 87591; 88142; 87624

== ENCOUNTER 2024-06-11 12:36 | Outpatient (REF) | payer BC, SELFPAY ==
--- OUTSIDE RECORDS SUMMARY | 2024-06-12 12:38 | XMS_ITS | Encounter Summary ---
Author Organization [facility] Address [address] [place] [address] Care Team Providers Care Billet Grinder Name Role Phone Tamiko Meyer LABORER PIE BAKERY Primary Care Provider Encounter Details Date Type Department Care Team (Late st Contact Info) Description 09/05/[address] [facility] Pathology & Laboratory Medicine - [facility] [address], [place] [address] Outr Resulting Lab, Provider Social History Tobacco Use Types Packs/Day Years Used Date Smoking Tobacco: Never Assessed Interpersonal Safety Answer Date Record ed Physically Hurt Never 12/30/2019 Verbally Threaten Not on file 12/30/2019 Comments Unknown Sex and Gender Information Value Date Recorded Sex Assigned at Not on file Legal Sex Female 22:27 EDT Gender Identity Not on file Sexual Orientation Not on file documented as of this encounter Plan of Treatment Not on file documented as of this encounter Procedures Procedure Name Priority Date/Time Associated Diagnosis Comments CHLAMYDIA/N. GONORRHOEAE AMPLIFIED NUCLEIC ACID, THINPREP Today 09/04/2023 11:30 EDT documented in this encounter Results * CHLAMYDIA/N. GONORRHOEAE AMPLIFIED RNA, THINPREP (09/04/2023 11:30 EDT) Neisseria gonorrhoeae Result Negative Negative 09/06/2023 14:19 EDT [facility] Chlamydia trachomatis Result Negative Negative 09/06/2023 14:19 EDT [facility] Pap Test CERVIX UTERI STRUCTURE / Unknown 09/04/2023 11:30 EDT 09/06/2023 8:02 EDT us Provider Outr Resulting Lab MICROBIOLOGY - GENER AL ORDERABLES Final Result [facility] [address] [place], [place] [address] documented in this encounter Visit Diagnoses Not on filedocumented in this encounter Care Teams Billet Grinder Relationship Specialty Start Date End Date Tamiko Meyer, BENITEZ [address] [place] [id number] PCP - General Family Medicine - Primary Care 05/29/22 documented as of this encounter
--- OUTSIDE RECORDS SUMMARY | 2024-06-12 12:38 | XMS_ITS | Encounter Summary ---
Author Organization [facility] Address [address] [place] [address] Care Team Providers Care Sales Audit Clerk Name Role Phone Tamiko Meyer DRUG CLERK Primary Care Provider [phone] Encounter Details Date Type Department Care Team (Late st Contact Info) Description 06/22/2022 Lab Requisition [facility] Pathology & Laboratory Medicine - [address] [address] Sarah Mccullough [address] [place] [address] [place] [address] Encounter for other general examination Social History Tobacco Use Types Packs/Day Years [...] Procedure Name Priority Date/Time Associated Diagnosis Comments PAP TEST Today 06/20/2022 11:40 EST Encounter for other general examination HPV DNA DETECTION WITH GENOTYPING, PCR Today 06/20/2022 11:40 EST Encounter for other general examination documented in this encounter Results * HUMAN PAPILLOMAVIRUS (HPV) DETECTION-HIGH RISK TYPES (06/20/2022 11:40 EST) HPV other High Risk types, PCR Negative Negative 06/29/2022 14:29 [facility] Comment:No E6 or E7 mRNA is detected from HPV types 16,18,31,33,35,39,45,51,52,56,58,59,66, and 68 by extruder operator mediated amplification. Papanicolaou smear specimen (specimen) CERVIX UTERI STRUCTURE / Unknown 06/20/2022 11:40 EST 06/28/2022 11:43 EST Sarah Jamel MICROBIOLOGY - GENERAL ORDERABLE S Final Result [facility] [address] [place] [address] * PAP TEST (06/20/2022 11:40 EST) Specimens A. Cervix and/or Endocervix , ThinPrep Imaging System with Manual Evaluation 06/29/2022 14:29 [facility] Specimen Adequacy Satisfactory for Evaluation - transformation zone component present 06/29/2022 14:29 [facility] General Categorization Epithelial Cell Abnormality 06/29/2022 14:29 [facility] Descriptive Diagnosis Squamous Cell Abnormality - Atypical squamous cells, undetermined significance (ASC-US). 06/29/2022 14:29 [facility] Educational Comments [facility] recommends following the ASCCP's management guidelines which may be found at www.asccp.org 06/29/2022 14:29 [facility] Attestation By the signature below, the attending physician certifies that they have personally conducted a gross and/or microscopic examination of the described specimens and rendered or confirmed the above diagnosis. 06/29/2022 14:29 [facility] at 1429 Clinical History SEE BELOW 06/29/19 14:29 [facility] HPV The result for the Human Papillomavirus (HPV) Detection-High Risk Types is Negative. No E6 or E7 mRNA is detected from HPV types 16,18,31,33,35,3 9,45,51,52,56,58 ,59,66, and 68 by extruder operator mediated amplification.Te sting was performed on specimen [id number] and was resulted on 06/29/2022 1429 EST by JODY, LAB INSTRUMENT RESULTS IN 06/29/2022 14:29 EST [facility] Performing Lab [facility] 06/29/2022 14:29 EST [facility] Scanned Images 06/29/2022 14:29 EST [facility] Papanicolaou smear specimen (specimen) CERVIX UTERI STRUCTURE / Unknown 06/20/2022 11:40 EST 06/22/2022 10:15 EST Sarah Jamel PATHOLOGY ORDERABLES Final Resul t Performing Organization Address City/State/[facility] Co de Phone Number [facility] [address] [place] [address] documented in this encounter Visit Diagnoses Diagnosis Encounter for other general examination documented in this encounter Care Teams Sales Audit Clerk Relationship Specialty Start Date End Date Tamiko Meyer NP [address] [place] [id number] PCP - General Family Medicine - Primary Care 05/29/22 documented as of this encounter
--- OUTSIDE RECORDS SUMMARY | 2024-06-12 12:38 | XMS_ITS | Encounter Summary ---
Author Organization [facility] [place] [address] Care Team Providers Care City Solicitor Name Role Phone Unavailable Primary Care Provider Unavailabl e Encounter Details Date Type Department Care Team (Late st Contact Info) Description 03/14/2023 Telephone Obstetrics [place] [address] Shaniqua Mccullough, RN Social History Tobacco Use Types Packs/Day Years Used Date Smoking Tobacco: Never Assessed Sex and Gender Information Value Date Recorded Sex Assigned at Not on file Gender Identity Not on file Sexual Orientation Not on file documented as of this encounter Miscellaneous Notes * Telephone Encounter - Shaniqua Mccullough, RN - 03/14/2023 11:17 AM EDT T/C to Adam Arauz to go over options for termination. No answer and V/M full. * Telephone Encounter - Shaniqua Mccullough, RN - 03/14/2023 11:17 AM EDT ----- Message from Santos Guadalupe sent at 03/13/2023 2:43 PM EDT ----- Good Afternoon, Adam called and would like to speak with our FP nurse regarding our services.She stated the [phone] number is best to reach her at. Santos Goodwin documented in this encounter Plan of Treatment Not on file documented as of this encounter Visit Diagnoses Not on filedocumented in this encounter
--- OUTSIDE RECORDS SUMMARY | 2024-06-12 12:38 | XMS_ITS | Clinical Summary ---
Author Organization [facility] Address [address] [place] [address] Care Team Providers Care Automotive Parts Coordinator Name Role Phone Tamiko Meyer Danielle FIBERGLASS SKI MAKER Primary Care Provider [phone] Social History Tobacco Use Types Packs/Day Years Used Date Smoking Tobacco: Never Assessed Interpersonal Safety Answer Date Record ed Physically Hurt Never 12/30/2019 Verbally Threaten Not on file 12/30/2019 Comments Unknown Sex and Gender Information Value Date Recorded Sex Assigned at Not on file Legal Sex Female 22:27 EDT Gender Identity Not on file Sexual Orientation Not on file Plan of Treatment Health Maintenance Due Date Last Done Comments Hepatitis C Screen 1995 Hepatitis B Vaccine (1 of 3 - 19+ 3-dose series) 05/13 COVID-19 Vaccine (2023- season) 2024 Insurance MEDICAID [place] Care Teams Automotive Parts Coordinator Relationship Specialty Start Date End Date Tamiko Meyer NP [address] [place] [phone] PCP - General Family Medicine - Primary Care 05/29/22
--- OUTSIDE RECORDS SUMMARY | 2024-06-12 12:38 | XMS_ITS | Encounter Summary ---
Author Organization [facility] Address [address] [place] [address] Care Team Providers Care Escrow Agent Name Role Phone Unknown, Provider Primary Care Provider Tamiko Odom CLASSIFICATION AND TREATMENT DIRECTOR Primary Care Provider [phone] Encounter Details Date Type Department Care Team (Late st Contact Info) Description 09/03/2020 Lab Requisition [facility] Pathology & Laboratory Medicine - [facility] [address] [place] [address] Outr Resulting Lab, Provider Social History Tobacco [...] Procedure Name Priority Date/Time Associated Diagnosis Comments ZZCOVID-19 TEST [facility] PCR Today 09/03/2020 10:32 EDT COVID-19 TESTING Routine 09/03/2020 10:3 2 EDT documented in this encounter Results * COVID-19 TEST [facility] PCR (09/03/2020 10:32 EDT) Swab ENTIRE NASOPHARYNX / Unknown 09/03/2020 10:32 EDT 09/03/2020 20:09 EDT us Provider Outr Resulting Lab MICROBIOLOGY - GENER AL ORDERABLES Final Result Performing Organization Address [facility]/ZIP Co de Phone Number [facility] [address] [place] [address] * COVID-19 TESTING (09/03/2020 10:32 EDT) COVID-19 rt-PCR Result Negative Negative 09/04/2020 14:23 EDT [facility] Comment: This test has not been FDA cleared or approved. This test has been authorized by FDA under an EUA for use by authorized laboratories. This test has been authorized only for detection of nucleic acid from 2019-nCoV, not for any other viruses or pathogens. This test is only authorized for the duration of the declaration that circumstances exist justifying the authorization of emergency use of in vitro diagnostic tests for detection and/or diagnosis of 2019-nCoV under section 564(b)(1) of Act, 21 U.S.C ?? 360bbb-3(b) (1), unless the authorization is terminated or revoked sooner. Negative results do not preclude 2019-nCoV infection and should not be used as the sole basis for treatment or other patient management decisions. Negative results must be combined with clinical observations, patient history, and epidemiological information. Testing was performed using the noble SARS-CoV-2 assay ([employer] on the Noble 6800 System Performing Lab Noble 6800 [facility] Lab 09/04/2020 14:23 EDT [facility] Swab 09/03/2020 10:3 2 EDT 09/03/2020 20:09 EDT us Provider Outr Resulting Lab MICROBIOLOGY - GENER AL ORDERABLES Final Result Performing Organization Address [facility]/ZIP Co de Phone Number [facility] [address] [place] [address] documented in this encounter Visit Diagnoses Not on filedocumented in this encounter Care Teams Escrow Agent Relationship Specialty Start Date End Date Unknown, Provider, PCP - General 11/22/18 05/28/22 Tamiko Meyer NP [address] [place] [address] PCP - General Family Medicine - Primary Care 05/29/22 documented as of this encounter
--- OUTSIDE RECORDS SUMMARY | 2024-06-12 12:38 | XMS_ITS | Encounter Summary ---
Author Organization [facility] Address [address] [place] [address] Care Team Providers Care Box Blank Machine Feeder Name Role Phone Unknown, Provider MD Primary Care Provider Unava ilable Encounter Details Date Type Department Care Team (Latest Contact Info) Description 11/22/2018 18:26 EDT - 11/22/2018 23:59 EDT Hospital Encounter [address] [address] Unknown, Provider, Discharge Disposition: Home or Self Care Social History Tobacco Use Types Packs/Day Years Used Date Smoking Tobacco: Never Assessed Comments Unknown Sex and Gender Information Value Date Recorded Sex Assigned at Not on file Legal Sex Female 22:27 EDT Gender Identity Not on file Sexual Orientation Not on file documented as of this encounter Discharge Disposition Disposition Code Departure Means Destination Home or Self Custodial documented in this encounter Plan of Treatment Not on file documented as of this encounter Visit Diagnoses Not on filedocumented in this encounter Care Teams Box Blank Machine Feeder Relationship Specialty Start Date End Date Unknown, Provider, PCP - General 11/22/18 05/28/22 documented as of this encounter
--- OUTSIDE RECORDS SUMMARY | 2024-06-12 12:38 | XMS_ITS | Encounter Summary ---
Author Organization [facility] Address [address] [place] [address] Care Team Providers Care Fashion Styling Intern Name Role Phone Unknown, Provider Primary Care Provider Tamiko Odom SHEET ROCK APPLICATOR Primary Care Provider [phone] Encounter Details Date Type Department Care Team (Late st Contact Info) Description 06/18/2019 Lab Requisition [facility] Pathology & Laboratory Medicine - [facility] [address] [place] [address] Amira Aldana, PROGRAMMER ANALYST [address] [place] [phone] Encounter for other general examination Social History [...] Date/Time Associated Diagnosis Comments PAP TEST Today 06/17/2019 15:15 EST Encounter for other general examination documented in this encounter Results * PAP TEST (06/17/2019 15:15 EST) Specimens A. Cervix and/or Endocervix, , ThinPrep Imaging System with Manual Evaluation 06/26/2019 8:[address] [facility] Specimen Adequacy Satisfactory for Evaluation - transformation zone component absent 06/26/2019 8:[address] [facility] General Categorization Negative for intraepithelial lesion or malignancy 06/26/2019 8:[address] [facility] Attestation By the signature below, the attending physician certifies that they have personally conducted a gross and/or microscopic examination of the described specimens and rendered or confirmed the above diagnosis. 06/26/2019 8:[address] [facility] at 0842 Clinical History SEE ORDER COMMENTS 06/26/2019 8:[address] [facility] Scanned Images 06/26/2019 8:[address] [facility] Papanicolaou smear specimen (specimen) CERVIX UTERI STRUCTURE / Unknown 06/17/2019 15:15 EST 06/18/2019 9:54 EST us Amira Aldana PROGRAMMER ANALYST PATHOLOGY ORDERABLES Tammy l Result [facility] [address] [place] [address] documented in this encounter Visit Diagnoses Diagnosis Encounter for other general examination documented in this encounter Care Teams Fashion Styling Intern Relationship Specialty Start Date End Date Unknown, Provider, PCP - General 11/22/18 05/28/22 Tamiko Meyer, SHEET ROCK APPLICATOR [address] [place] [address] PCP - General Family Medicine - Primary Care 05/29/22 documented as of this encounter
--- OUTSIDE RECORDS SUMMARY | 2024-06-12 12:38 | XMS_ITS | Encounter Summary ---
Author Organization [facility] Address [address] [place] [address] Care Team Providers Care Narrow Fabric Loom Fixer Name Role Phone Tamiko Meyer AIR FILLER Primary Care Provider [phone] Encounter Details Date Type Department Care Team (Late st Contact Info) Description 09/07/2023 Lab Requisition [facility] Pathology & Laboratory Medicine - [facility] [address] [place] [address] Sarah Mccullough [address] [place] [address] [place] [address] Encounter for other general examination [...] Date/Time Associated Diagnosis Comments PAP TEST Today 09/04/2023 11:30 EDT Encounter for other general examination HPV DNA DETECTION WITH GENOTYPING, PCR Today 09/04/2023 11:30 EDT Encounter for other general examination documented in this encounter Results * HUMAN PAPILLOMAVIRUS (HPV) DETECTION-HIGH RISK TYPES (09/04/2023 11:30 EDT) HPV other High Risk types, PCR Negative Negative 09/12/2023 16:43 EDT [facility] Comment:No E6 or E7 mRNA is detected from HPV types 16,18,31,33,35,39,45,51,52,56,58,59,66, and 68 by media sales representative mediated amplification. Pap Test CERVIX UTERI STRUCTURE / Unknown 09/04/2023 11:30 EDT 09/11/2023 15:09 EDT [facility] Jamel MICROBIOLOGY - GENERAL ORDERABLE S Final Result [facility] [address] [place], [place] [id number] * PAP TEST (09/04/2023 11:30 EDT) Specimens A. Cervix and/or Endocervix , ThinPrep Imaging System with Manual Evaluation 09/12/2023 16:43 [facility] Specimen Adequacy Satisfactory for Evaluation - transformation zone component absent 09/12/2023 16:43 [facility] General Categorization Negative for intraepithelial lesion or malignancy 09/12/2023 16:43 [facility] Attestation . 09/12/2023 16:43 [facility] at 1643 Clinical History See below 09/12/19 24 16:43 [facility] HPV The result for the Human Papillomavirus (HPV) Detection-High Risk Types is Negative. No E6 or E7 mRNA is detected from HPV types 16,18,31,33,35,39 ,45,51,52,56,58,5 9,66, and 68 by media sales representative mediated amplification.Tania ting was performed on specimen [id number] and was resulted on 09/12/2023 1643 EDT by JODY, LAB INSTRUMENT RESULTS IN 09/12/2023 16:43 T [facility] Performing Lab [facility] 09/12/2023 16:43 T [facility] Scanned Images 09/12/2023 16:43 T [facility] Pap Test CERVIX UTERI STRUCTURE / Unknown 09/04/2023 11:30 EDT 09/07/2023 9:01 EDT Sarah Mccullough PATHOLOGY ORDERABLES Final Resul t [facility] [address] [place], [place] [id number] documented in this encounter Visit Diagnoses Diagnosis Encounter for other general examination documented in this encounter Care Teams Narrow Fabric Loom Fixer Relationship Specialty Start Date End Date Tamiko Meyer NP [address] [place] [address] PCP - General Family Medicine - Primary Care 05/29/22 documented as of this encounter
--- OUTSIDE RECORDS SUMMARY | 2024-06-12 12:38 | XMS_ITS | Encounter Summary ---
Author Organization [facility] Address [address] [place] [address] Care Team Providers Care Quiller Operator Name Role Phone Unknown, Provider Primary Care Provider Unava ilable Encounter Details Date Type Department Care Team (Late st Contact Info) Description 11/22/2018 Results Only [facility] [phone] Benedict Ruvalcaba MD [address] [place] [address] Social History Tobacco Use Types Packs/Day Years [...] Procedure Name Priority Date/Time Associated Diagnosis Comments SURGICAL PATHOLOGY Routine 11/22/2018 22 :35 EDT CYTOPATHOLOGY Routine 11/22/2018 0:00 EDT documented in this encounter Results * SURGICAL PATHOLOGY (11/22/2018 22:35 EDT) Pathology Report: SURGICAL PATHOLOGY REPORT Reports generated via electronic interface contain original data; however they are lacking the format of the original report. Caution should be taken when reading/interpret ing unformatted reports. Name: ? ADAM ARAUZ ? Accession #: ? [id number] ? : ? 1995 (Age: 23) ??F ? Collect Date: ? 11/22/2018 ? Location: ? [facility] ? Receive Date: ? 11/22/2018 ? Provider: BENEDICT RUVALCABA MD Copy to: CHESTER TRUJILLO GRAB JACK MAN ? Final Pathologic Diagnosis: OVARY, CYST, EXCISION: - Benign serous cystadenoma. Document reviewed and electronically signed by: PUJA SUAREZ MD Report ??Date: 11/26/2018 14:55 By the signature above, the attending physician certifies that he/she has personally conducted a gross and/or microscopic examination of the described specimens and rendered or confirmed the above diagnosis. Specimen(s) Received: Left ovarian cyst Clinical History: Ovarian cyst, torsion Gross Description: ? Received in formalin labelled with proper patient identification (initials L, D) and left ovarian cyst is a collapsed cyst (5.6 x 4.1 x 1.5 cm). The outer surface is harmon-pink and focally hemorrhagic. The inner lining has a thickened trabeculated appearance. No nodules or lesions are identified. Account Development Associate sections are submitted in 1-3. FATMATA Guerra (ASCP) 11/23/2018 8:38 AM End of Report [facility] 11/22/2018 22:3 5 EDT 11/22/2018 22:35 EDT us Benedict Ruvalcaba MD PATHOLOGY ORDERABLES Final Resul t [facility] [address] [place] [address] * CYTOPATHOLOGY (11/22/2018 0:00 EDT) Pathology Report: CYTOPATHOLOGY REPORT Reports generated via electronic interface contain original data; however they are lacking the format of the original report. Caution should be taken when reading/interpret ing unformatted reports. Name: ? ADAM ARAUZ ? Accession #: ? [id number] : ? 1995 (Age: 23) ??F ?Collect Date: ? 11/22/2018 Location: ? [facility] ? Receive Date: ? 11/23/2018 Provider: ? BENEDICT RUVALCABA MD Copy to: ?CHESTER TRUJILLO GRAB JACK MAN ? CYTOLOGIC DIAGNOSIS: PERITONEAL WASHING, CYTOLOGIC EVALUATION: - No malignant cells identified. Document reviewed and electronically signed by: ? ROGERS VARGAS MD Report Date: ??11/23/2018 17:37 By the signature above, the attending physician certifies that he/she has personally conducted a gross and/or microscopic examination of the described specimens and rendered or confirmed the above diagnosis. Specimen Type: ? Peritoneal Washing Clinical History: ? Ovarian cyst ? Gross Description: ? 20 ccs of cloudy light pink fluid, of which 10 ccs are composed of Cytolyt, were received and processed by selective cellular enhancement technique. ? End of Report [facility] 11/22/2018 11/23/2018 9:1 8 EDT us Benedict Ruvalcaba MD PATHOLOGY ORDERABLES Final Resul t [facility] [address] [place] [address] documented in this encounter Visit Diagnoses Not on filedocumented in this encounter Care Teams Quiller Operator Relationship Specialty Start Date End Date Unknown, Provider, PCP - General 11/22/18 05/28/22 documented as of this encounter
--- OUTSIDE RECORDS SUMMARY | 2024-06-12 12:38 | XMS_ITS | Clinical Summary ---
Author Organization [facility] [place] [address] Care Team Providers Care Treasury Director Name Role Phone Unavailable Primary Care Provider Unavailabl e Social History Tobacco Use Types Packs/Day Years Used Date Smoking Tobacco: Never Assessed Sex and Gender Information Value Date Recorded Sex Assigned at Not on file Gender Identity Not on file Sexual Orientation Not on file Plan of Treatment Health Maintenance Due Date Last Done Comments HIV screen 2015 Hepatitis C Screening 2015 Hepatitis B vaccine (0-59 yrs) (1) 2016 Tetanus/Diphtheria/Pertussis Vaccines (1 - Tdap) 05/13 PAP Smear 2018 Covid-19 Vaccine ( - 2023-25 season) 2024 Influenza (Flu) vaccine (1 o f 1 - Influenza standard series) 01/28/2024
--- OUTSIDE RECORDS SUMMARY | 2024-06-12 12:38 | XMS_ITS | Referral Summary ---
Author Organization [facility] Address [address] [place] [address] Care Team Providers Care Delivery Professional Name Role Phone Tamiko Meyer Danielle TOP HAT BODY MAKER Primary Care Provider [phone] Social History Tobacco Use Types Packs/Day Years Used Date Smoking Tobacco: Never Assessed Interpersonal Safety Answer Date Record ed Physically Hurt Never 12/30/2019 Verbally Threaten Not on file 12/30/2019 Comments Unknown Sex and Gender Information Value Date Recorded Sex Assigned at Not on file Legal Sex Female 22:27 EDT Gender Identity Not on file Sexual Orientation Not on file Plan of Treatment Not on file Insurance MEDICAID [place] Care Teams Delivery Professional Relationship Specialty Start Date End Date Tamiko Meyer NP [address] [place] [address] PCP - General Family Medicine - Primary Care 05/29/22
--- OUTSIDE RECORDS SUMMARY | 2024-06-12 12:38 | XMS_ITS | Encounter Summary ---
Author Organization [facility] Address [address] [place] [address] Care Team Providers Care Mounter Automatic Name Role Phone Tamiko Meyer Danielle PRODUCTION INTERN Primary Care Provider [phone] Encounter Details Date Type Department Care Team (Late st Contact Info) Description 06/20/2022 Lab Requisition [facility] Pathology & Laboratory Medicine - [facility] [address] [place], [place] [address] Outr Resulting Lab, Provider Social History Tobacco [...] Comments CHLAMYDIA/N. GONORRHOEAE AMPLIFIED NUCLEIC ACID, THINPREP Routine 06/20/2022 11:40 EST documented in this encounter Results * CHLAMYDIA/N. GONORRHOEAE AMPLIFIED RNA, THINPREP (06/20/2022 11:40 EST) Neisseria gonorrhoeae Result Negative Negative 06/21/2022 16:52 EST [facility] Chlamydia trachomatis Result Negative Negative 06/21/2022 16:52 EST [facility] Papanicolaou smear specimen (specimen) CERVIX UTERI STRUCTURE / Unknown 06/20/2022 11:40 EST 06/21/2022 7:48 EST us Provider Outr Resulting Lab MICROBIOLOGY - GENER AL ORDERABLES Final Result [facility] [address] [place] [address] documented in this encounter Visit Diagnoses Not on filedocumented in this encounter Care Teams Mounter Automatic Relationship Specialty Start Date End Date Tamiko Meyer NP [address] [place] [address] PCP - General Family Medicine - Primary Care 05/29/22 documented as of this encounter
--- OUTSIDE RECORDS SUMMARY | 2024-06-12 12:38 | XMS_ITS | Encounter Summary ---
Author Organization [facility] Address [address] [place] [address] Care Team Providers Care Wooling Machine Operator Name Role Phone Tamiko Meyer Danielle KETTLE LOADER Primary Care Provider [phone] Encounter Details Date Type Department Care Team (Late st Contact Info) Description 08/15/2022 Lab Requisition [facility] Pathology & Laboratory Medicine - [facility] [address] [place], [place] [address] Outr Resulting Lab, Provider Social History Tobacco [...] Procedure Name Priority Date/Time Associated Diagnosis Comments LH Routine 08/15/2022 9:53 EDT FSH Routine 08/15/2022 9:53 EDT documented in this encounter Results * LH (08/15/2022 9:53 EDT) Luteinizing Hormone 9.2 See Note mIU/mL 08/15/2022 19:14 EDT [facility] Comment: NOTE: Female Reference Ranges: Pre-Pubertal: ?<6.0 mIU/mL Menstruating: Follicular Phase(-12 to -4 days: ??1.9 - 12.5 mIU/mL Midcycle(-3 to +2 days): ?8.7 - 76.3 mIU/mL Luteal Phase(+4 to +12 days): ? 0.5 - 16.9 mIU/mL Post Menopausal: 15.9 - 54.0 mIU/mL Blood VENOUS BLOOD / Unknown 08/15/2022 9:53 EDT 08/15/2022 17:01 EDT us Provider Outr Resulting Lab CHEMISTRY & BLOOD GA S ORDERABLES Final Result [facility] [address] [place] [address] * FSH (08/15/2022 9:53 EDT) FSH 4.8 See Note mIU/mL 08/15/2022 19:13 EDT [facility] Blood VENOUS BLOOD / Unknown 08/15/2022 9:53 EDT 08/15/2022 17:01 EDT Narrative [facility] - 08/15/2022 19:13 EDT NOTE: Female FSH Reference Ranges (Menstruating): PHYSIOLOGICAL STATUS ? REFERENCE RANGE ? Follicular (-12 to -4 days): ?? 2.5 - 10.2 mIU/mL Midcycle (-3 to +2 days): ?3.4 - 33.4 mIU/mL Luteal (+4 to +12 days): ? 1.5 - 9.1 mIU/mL Postmenopausal: ?23.0 - 116.3 mIU/mL Reference Ranges for pediatric non-menstruating female patients have not been established. us Provider Outr Resulting Lab CHEMISTRY & BLOOD GA S ORDERABLES Final Result [facility] [address] [place] [address] documented in this encounter Visit Diagnoses Not on filedocumented in this encounter Care Teams Wooling Machine Operator Relationship Specialty Start Date End Date Tamiko Meyer, BENITEZ [address] [place] [address] PCP - General Family Medicine - Primary Care 05/29/22 documented as of this encounter
--- OUTSIDE RECORDS SUMMARY | 2024-06-12 12:38 | XMS_ITS | Encounter Summary ---
Author Organization [facility] Address [address] [place] [address] Care Team Providers Care Compliance Manager Name Role Phone Unknown, Provider MD Primary Care Provider Unava ilable Encounter Details Date Type Department Care Team (Latest Contact Info) Description 11/22/2018 17:53 EDT - 11/22/2018 23:59 EDT Hospital Encounter [address] [address] Unknown, Provider, Discharge Disposition: Home or Self [...] on filedocumented in this encounter Care Teams Compliance Manager Relationship Specialty Start Date End Date Unknown, Provider, PCP - General 11/22/18 05/28/22 documented as of this encounter
== END 2024-06-12 12:37 | disposition home or self-care (01) ==
LOC: LBN 12:36
PROVIDERS: PCP Nurse Practitioner; Visit Provider Nurse Practitioner
DX: R30.0 Dysuria (principal)
CPT/HCPCS: 87077; 87086; 87186

== ENCOUNTER 2024-10-06 02:27 | Emergency (ER) | payer BC, SELFPAY ==
[2024-10-06 02:30] VITALS: PULSE 105; RESP 18; TEMP 36.2; O2SAT 98
[2024-10-06 02:33] VITALS: RESP 18
--- NOTE | 2024-10-06 02:50 | ED.GENADUL_ITS ---
Discharge Plan Disposition Patient Disposition: Home Condition: Good Discharge Details Clinical Impression: Right-sided epistaxis Primary Care Provider: Tamiko Meyer ED Provider: Ramírez Bennett Home Meds and New Rx's Prescriptions: No Action cholecalciferol (vitamin D3) 400 unit capsule 400 unit PO DAILY ibuprofen 200 mg capsule 200 mg PO Q6H PRN Patient Comments: 4 tabs q 6 hrs ciprofloxacin HCl [Cipro] 500 mg tablet 500 mg PO BID Qty: 10 0RF Discharge Instructions Instructions: Nosebleeds ED Additional Instructions: At this time the bleeding has resolved and has stayed stopped. Please use the nasal clamp as needed for any repeat bleeding. Please have a humidifier at bedside. It is reasonable to place a small amount of Vaseline on the inside of your nose gently with a soft Q-tip to keep it moisturized. If you notice any worsening of your symptoms, or any new symptoms such as vomiting, diarrhea, fever, chills, shortness of breath, chest pain, numbness, weakness, or fainting , please return immediately to the emergency department for reevaluation. Please follow up with your primary care provider as soon as possible for reassessment and reevaluation. As always, it was a pleasure participating in your medical care today. Referrals: Tamiko Meyer, BENITEZ [Primary Care Provider] - [facility] General Date/Time Provider Initiated Documentation: 10/06/24 02:33 . HPI Narrative: This is a 29-year-old female with past medical history of PCOS, bipolar type II, obstructive sleep apnea, and frequent nosebleeds since childhood, presents today for evaluation of nosebleed. She states that for the last day or 2 she has had a mild sore throat runny nose, today/this evening it started to bleed. She had 2 smaller bleeds earlier today which resolved on their own. She came in tonight as third bleeding was not getting better on its own. She denies any fever or chills. She denies any vomiting or diarrhea. No known history of hemophilia, clotting disorder, or thrombocytopenia. No known family history of Wqhdu-Umpat-Ccdiv syndrome. Related Data Home Medications ?Medication ?Instructions ?Recorded ?Confirmed cholecalciferol (vitamin D3) 10 400 unit PO DAILY 06/17/19 10/06/24 mcg (400 unit) capsule ibuprofen 200 mg capsule 200 mg PO Q6H PRN 10/17/22 10/06/24 ciprofloxacin HCl 500 mg tablet 500 mg PO BID #10 tabs 06/17/24 10/06/24 (Cipro) Previous Rx's ?Medication ?Instructions ?Recorded ciprofloxacin HCl 500 mg tablet 500 mg PO BID #10 tabs 06/17/24 (Cipro) Allergies Allergy/AdvReac Type Severity Reaction Status Date / Time Sulfa (Sulfonamide Allergy Intermediate sneezing, Verified 10/06/24 02:34 Antibiotics) urticaria, throat swelling fluoxetine AdvReac Hair loss Verified 10/06/24 02:34 and worsening of mood (anger) venlafaxine AdvReac Psychosis, Verified 10/06/24 02:34 worsened depression, agitation General Stated Complaint: GenMedical GABRIELLA: 4 Exam Narrative Exam Narrative: 1.Const: Well-nourished, Well-developed, appearing stated age 2.Eyes: PERRL, no conjunctival injection, and symmetrical lids. 3.ENT: Atraumatic external nose and ears. Moist MM. No erythema in the posterior oropharynx. Neck: Symmetric, trachea midline, No thyromegaly. After clot was expectorated from the nose, the patient demonstrates a small area on the anterior nasal septum in the right nare which appeared to be the original s ite of the bleed. No active bleed at this time. Small eschar currently over that area. No blood in the posterior oropharynx. No evidence of large active bleed. 4.CVS: +S1/S2, Peripheral pulses 2+ and equal in all extremities. Brisk capillary refill in all extremities. 5.RESP: Unlabored respiratory effort. Clear to auscultation bilaterally. No wheezes rales or rhonchi 6.GI: Soft, Nontender/Nondistended, No hepatosplenomegaly. No guarding or rebound. 7.MSK: Normocephalic/Atraumatic, Extremities w/o deformity or ttp No cyanosis or clubbing, Normal movement of all extremities 8.Skin: Warm, Dry. No rashes or lesions. 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 Sensation grossly intact, no focal neurologic deficits. 10.Psych: (AAO) x3. Appropriate mood and affect Course Vital Signs Vital signs: Vital Signs Temperature 36.2 C L 10/06/24 02:30 Pulse 105 H 10/06/24 02:30 Respiratory Rate 18 10/06/24 02:30 Pulse Oximetry 98 10/06/24 02:30 Temperature 36.2 C L 10/06/24 02:30 Temperature Source Skin 10/06/24 02:30 Pulse 105 H 10/06/24 02:30 Respiratory Rate 18 10/06/24 02:33 Respiratory Effort Normal 10/06/24 02:33 Respiratory Depth Normal 10/06/24 02:33 Respiratory Pattern Normal 10/06/24 02:33 Pulse Oximetry 98 10/06/24 02:30 Oxygen Delivery Method Room Air 10/06/24 02:30 Oxygen Flow Rate 0 10/06/24 02:30 Procedure Epistaxis Control Date of Procedure: 10/06/24 Time of Procedure: 03:04 Provider that performed the procedure: Ramírez Bennett Patient Consented: Verbally Time Out Performed: Yes Nostril: right Nose prepped with: TXA Direct Inspection: yes and anterior source identified Clots Removed by: blowing nose Cautery Used: none Device Inserted: Other (Bleeding was stopped, small 2 x 2 gauze with TXA was applied.) Packing/Dressing: Hemostatic dressing Medical Decision Making This is a 29-year-old female with past medical history of PCOS, bipolar type II, obstructive sleep apnea, and frequent nosebleeds since childhood, presents today for evaluation of nosebleed. She states that for the last day or 2 she has had a mild sore throat runny nose, today/this evening it started to bleed. She had 2 smaller bleeds earlier today which resolved on their own. She came in tonight as third bleeding was not getting better on its own. She denies any fever or chills. She denies any vomiting or diarrhea. No known history of hemophilia, clotting disorder, or thrombocytopenia. No known family history of Khvyb-Buaig-Jsuvr syndrome. After clot was expectorated from the nose, the patient demonstrates a small area on the anterior nasal septum in the right nare which appeared to be the original site of the bleed. No active bleed at this time. Small eschar currently over that area. No blood in the posterior oropharynx. No evidence of large active bleed. A small 2 x 2 of gauze was placed and soaked with TXA. Although there was no more bleeding, we did apply the nasal clamp to help continue hemostasis. Patient is tolerated this well. Will observe the patient for any evidence of rebleed. At this time there is no indication for Rhino Rocket. 3:30 AM On reassessment the patient's bleeding has remained resolved. No rebleeding. Patient is doing well. Hemodynamically stable. No indication for additional mechanical or procedural interventions. Patient will be discharged home. Discussed red flags for which to return. I have extensively reviewed the treatment plan and discharge instructions with the patient. I have addressed all patient concerns at this time. The patient was made aware of what symptoms to monitor for that would warrant a return to the emergency department. Discussed the plan with the patient, they demonstrate verbal understanding and agreement with our assessment and plan at this time. The documentation in this chart was dictated using [employer] dictation software. Please excuse any dictation errors. Quality:SDOH Health Related Social Needs: No Data to Display PFSH All Active Problems (Updated 10/06/24 @ 03:06 by Ramírez Bennett DO) Right-sided epistaxis (Acute) Unsuccessful insertion of intrauterine device (IUD) (Acute) Patient unable to tolerate examination due to emotional response from previous termination. No cervical manipulation performed. Tinnitus, bilateral (Acute) Contraception (Acute) Nexplanon x2. 05/2021 device removed. 10/2022. Yary. Dysmenorrhea (Acute) PCOS (polycystic ovarian syndrome) (Acute) ASCUS of cervix with negative high risk HPV (Acute) ASCUS, negative HPV, 05/2022. Recommend repeat Pap smear 05/2023 Pap- 09/19 DUB (dysfunctional uterine bleeding) (Acute) Bipolar II disorder with rapid cycling (Acute) Chronic back pain (Acute) MONY (obstructive sleep apnea) (Chronic ~07/2020) Sleep note 07/04/24; new machine ordered by provider.HE 07/13/2020 sleep study; moderate Medical History (Updated 10/06/24 @ 03:06 by Ramírez Bennett DO) Periodic limb movement disorder (~05/2020) 07/13/2020 sleep study Obesity Anxiety Depression Ovarian torsion Migraines (06/30/16) Surgical History H/O ovarian cystectomy with ovarian torsion. [address]. laparoscopy[address] Crockett. [place] teeth extraction Tympanostomy tube placement Tonsillectomy Family History Mother No problems noted. Father Substance abuse Heavy MJ Sister No problems noted. Grandmother Diabetes Social History Smoking/Tobacco Use Status: Current-Occasional Quit status: not considering quitting Smoking risk assessment performed?: Yes Alcohol Intake: never Drug use: Never Substance use type: does not use Household members: significant other current occupation: [employer] between jobs Do you feel safe at home: Yes Do you feel safe in your relationship?: Yes Female Reproductive History Menstrual control method: implanted History History 0 Para Hx # Term Pregnancies Multiple births Hx # Pregnancies Ectopic pregnancies AB induced Hx Number of Living Children AB spontaneous
[2024-10-06] MEDS: Lidocaine/Epinephri/Tetracaine Topical Gel 3 ML (03:00)
[2024-10-06] MEDS: Tranexamic Acid 1,000 MG/10 ML VIAL 1000 MG (03:00)
== END 2024-10-06 03:34 | disposition home or self-care (01) ==
PROVIDERS: Emergency Provider Student in an Organized Health Care Education/Training Program; PCP Nurse Practitioner
DX: R04.0 Epistaxis (principal)
CPT/HCPCS: 30903